=== PATIENT | male | born 1950 | race Caucasian/White ===

== ENCOUNTER 2022-04-28 08:18 | Outpatient (CLI) | payer OTHER | END 2022-04-28 08:19 | disposition home or self-care (01) | LOC: CSHULT 08:18 | PROVIDERS: ATTEND Family Medicine | DX: Z13.6 Encounter for screening for cardiovascular disorders (principal); Z87.891 Personal history of nicotine dependence | CPT/HCPCS: 76775 ==

== ENCOUNTER 2023-09-10 20:04 | Inpatient (IN) | payer OTHER ==
[2023-09-10] MEDS ORDERED: Albuterol 2.5 MG (3 mL) NEB NEB PRN (23:49)
[2023-09-10] MEDS ORDERED: guaiFENesin/Codeine Phosphate 100 mg/10 mg 5 ml UD Cup PO PRN (23:51)
[2023-09-10] MEDS ORDERED: Acetaminophen 325 MG TAB PO PRN (23:53)
[2023-09-10] MEDS ORDERED: Senokot S 8.6-50 MG TAB PO PRN (23:53)
[2023-09-10] MEDS ORDERED: Calcium Carbonate 500 MG ChewTAB PO PRN (23:53)
[2023-09-11 00:04] VITALS: BMI 34.2
[2023-09-11] MEDS: Lactated Ringer's 1,000 ML IV SCH (00:38)
[2023-09-11] MEDS: Sodium Chloride 0.9% 1,000 ML IV SCH (00:44)
[2023-09-11] MEDS: Atorvastatin Calcium 40 MG TAB PO SCH (01:08)
[2023-09-11 03:58] LABS: Hemoglobin 12.1 g/dL (13.5-17.5); Mean Corpuscular HGB CONC 34.6 g/dL (32.0-36.0); Mean Corpuscular Hemoglobin 33.2 pg (27.0-33.0); Mean Corpuscular Volume 96.2 fl (81.2-95.1); Mean Platelet Volume 9.5 fl (7.4-10.4); Platelet Count 195 10x3/uL (150-450); RBC Distribution Width 12.2 % (11.5-14.5); Red Blood Cell (RBC) Count 3.64 10x6/uL (4.32-5.72)
[2023-09-11 04:01] LABS: MDiff Complete? YES
[2023-09-11 04:26] LABS: Platelet Adequacy Comment Appears Adequate; RBC Morph Comment Within Normal Limits
[2023-09-11 04:27] LABS: Anion Gap 13 mmol/L (10-20); BUN (Urea Nitrogen) 13 mg/dL (8.4-25.7); Band 6 % (5-11); Calc. Creatinine Clearance 120 mL/min (70-130); Calcium 8.9 mg/dL (7.8-10.44); Carbon Dioxide 21 mmol/L (23-31); Chloride 108 mmol/L (98-107); Eosinophils 2 % (0-10); Estimated GFR 94; Glucose 297 mg/dL (83-110); Lymphocytes 20 % (21-51); Monocytes 6 % (0-10); Neutrophil 64 % (42-75); Potassium 4.1 mmol/L (3.5-5.1); Reactive Lymphocytes 2 % (0-10); Sodium 138 mmol/L (136-145)
[2023-09-11 07:29] LABS: Legionella Urinary Ag Negative (Negative); Strep pneumo Urine Ag NEGATIVE (NEGATIVE)
[2023-09-11] MEDS: guaiFENesin ER 600 MG TAB PO SCH (09:21)
[2023-09-11] MEDS: Aspirin 81 mg Enteric Coated Tablet PO SCH (09:21)
[2023-09-11] MEDS: Enoxaparin 40 MG (0.4 mL) SYRINGE SC SCH (09:21)
[2023-09-11 09:23] VITALS: BP 143/72; TEMP 98
[2023-09-11] MEDS ORDERED: cefTRIAXone\\ROCEPHIN 2 GM in Sodium Chloride 0.9% 100 ML IVPB SCH (17:00)
[2023-09-11] MEDS ORDERED: Azithromycin 500 MG in Sodium Chloride 0.9% 250 ML 250 ML IVPB SCH (18:00)
[2023-09-11] MEDS ORDERED: Atorvastatin Calcium 40 MG TAB PO SCH (21:00)
[2023-09-12 12:14] LABS: SARS-CoV-2 N1 Negative; SARS-CoV-2 N2 Negative; SARS-CoV-2 RNAse P1 Positive; SARS-CoV-2 RNAse P2 Positive
== END 2023-09-11 10:35 | disposition home or self-care (01) | DRG 871 ==
LOC: CSHTELE 22:49
PROVIDERS: ADMIT Internal Medicine; ATTEND Internal Medicine
DX: A41.9 Sepsis, unspecified organism (principal); J18.9 Pneumonia, unspecified organism; J96.01 Acute respiratory failure with hypoxia; C91.10 Chronic lymphocytic leukemia of B-cell type not having achieved remission; E87.20 Acidosis, unspecified; E78.5 Hyperlipidemia, unspecified; Z90.49 Acquired absence of other specified parts of digestive tract; Z87.891 Personal history of nicotine dependence; Z79.82 Long term (current) use of aspirin; Z79.899 Other long term (current) drug therapy
CPT/HCPCS: 36415; 80048; 83735; 85025; 87449; 87635; 87804; 87899; 94760; J7050; J7120